=== PATIENT | male | born 1950 | race Caucasian/White ===

== ENCOUNTER 2020-11-11 07:03 | Emergency (ER) | payer OTHER | END 2020-11-11 11:12 | disposition home or self-care (01) | LOC: ER1 07:03 | DX: T18.128A Food in esophagus causing other injury, initial encounter (principal); K21.9 Gastro-esophageal reflux disease without esophagitis; J44.9 Chronic obstructive pulmonary disease, unspecified; K46.9 Unspecified abdominal hernia without obstruction or gangrene; K22.2 Esophageal obstruction; F17.200 Nicotine dependence, unspecified, uncomplicated; Z20.822 Contact with and (suspected) exposure to COVID-19; Z88.2 Allergy status to sulfonamides; W45.8XXA Other foreign body or object entering through skin, initial encounter | CPT/HCPCS: 94664; 94760; 99283; J2250; J3010; J7040; U0002 ==

== ENCOUNTER → 2022-02-11 | Outpatient (CLI) | payer OTHER | LOC: HEART 5 15:46 | DX: J44.9 Chronic obstructive pulmonary disease, unspecified (principal) | CPT/HCPCS: 94060; 94729 ==